=== PATIENT | male | born 1995 | race African-American/Black ===

== ENCOUNTER 2020-06-19 16:21 | Emergency (ER) | payer MEDICAID ==
[~2020-06-19] VITALS: Ht 172.7 cm; Wt 64.0 kg
[2020-06-19] MEDS ORDERED: HYDROCODONE/ACETAMINOPHEN 10/325MG TABLET PO ONE (16:45)
[2020-06-19] MEDS ORDERED: TETANUS, DIPHTHERIA, PERTUSSIS VAC/PF 0.5ML (>7YR OLD) IM ONE (16:45)
[2020-06-19 16:50] VITALS: BP 123/76
[2020-06-19] MEDS ORDERED: CEPH500T MT (17:10)
[2020-06-19] MEDS ORDERED: IBUP-2029 MT (17:11)
[2020-06-19] MEDS ORDERED: CEPHALEXIN 250MG CAPSULE PO ONE (17:15)
[2020-06-19] MEDS ORDERED: BACITRACIN ZINC OINT UDPKT TOP ONE (17:30)
[2020-06-19] MEDS ORDERED: LIDOCAINE HCL/EPINEPHRINE 1%-EPI 1:100,000 10 ML VIAL IJ ONE (17:30)
[2020-06-19] MEDS ORDERED: LIDOCAINE HCL/EPINEPHRINE 1%-EPI 1:100,000 20 ML VIAL INFIL NR (18:15)
== END 2020-06-19 20:56 | disposition home or self-care (01) ==
LOC: ER 16:21
DX: S92.535B Nondisplaced fracture of distal phalanx of left lesser toe(s), initial encounter for open fracture (principal); S91.115A Laceration without foreign body of left lesser toe(s) without damage to nail, initial encounter; Z79.899 Other long term (current) drug therapy; W33.01XA Accidental discharge of shotgun, initial encounter; Y93.89 Activity, other specified; Y92.89 Other specified places as the place of occurrence of the external cause; Y99.8 Other external cause status
CPT/HCPCS: 12002; 73630; 90471; 90715; 93005; 99284; A4217; J3490; Z7610